=== PATIENT | female | born 1995 | race African-American/Black ===

== ENCOUNTER 2020-06-11 08:03 | Outpatient (CLI) | payer MEDICAID | END 2020-06-11 08:04 | disposition home or self-care (01) | LOC: BICULT 08:03 | PROVIDERS: ATTEND Nurse Practitioner | DX: R10.2 Pelvic and perineal pain (principal) | CPT/HCPCS: 76856 ==

== ENCOUNTER 2020-08-06 08:09 | Outpatient (CLI) | payer OTHER ==
[2020-08-06] MEDS ORDERED: Magnevist 469MG/ML 20 ML VIAL ONE (09:39)
== END 2020-08-06 08:10 | disposition home or self-care (01) ==
LOC: BICMRI 08:09
PROVIDERS: ATTEND Nurse Practitioner
DX: N83.209 Unspecified ovarian cyst, unspecified side (principal); N83.8 Other noninflammatory disorders of ovary, fallopian tube and broad ligament
CPT/HCPCS: 72197; A9579